=== PATIENT | female | born 1980 | race African-American/Black ===

== ENCOUNTER 2018-02-24 04:53 | Emergency (ER) | payer OTHER ==
[~2018-02-24] VITALS: Ht 172.7 cm; Wt 115.1 kg
[2018-02-24 05:04] VITALS: BP 146/75
== END 2018-02-24 06:40 | disposition home or self-care (01) ==
LOC: ED 06:38
DX: O03.9 Complete or unspecified spontaneous abortion without complication (principal); Z3A.00 Weeks of gestation of pregnancy not specified
CPT/HCPCS: 36415; 84702; 99283